=== PATIENT | male | born 1955 | race Caucasian/White ===

== ENCOUNTER 2016-07-23 18:24 | Outpatient (CLI) | payer OTHER ==
--- NOTE | 2016-07-23 19:41 | XRAY Preliminary Report ---
Exam: XR Hand 3 View RT IMPRESSION: Oblique fracture of the shaft of the fourth metacarpal, mildly displaced. RADIA The call report notification system was initiated by Dr. Jesus Duenas at 19:28 hrs on 07/23/16. The above findings were discussed with Dr. Eunice Lezama by Dr. Jesus Duenas at 19:40 hrs on 07/23/16. SITE ID: [id number]
--- NOTE | 2016-07-23 19:44 | XRAY Report ---
EXAM: RIGHT HAND RADIOGRAPHY EXAM DATE: 07/23/2016 06:35 PM. CLINICAL HISTORY: PAIN IN UNSPECIFIED FINGER(S). COMPARISON: None. TECHNIQUE: 3 views. FINDINGS: Bones: There is an oblique fracture of the mid shaft of the fourth metacarpal, mildly displaced. Joints: Osteoarthritic changes of the interphalangeal joints and wrist joints. Soft Tissues: Medial soft tissue swelling. IMPRESSION: Oblique fracture of the shaft of the fourth metacarpal, mildly displaced. RADIA The call report notification system was initiated by Dr. Jessu Duenas at 19:28 hrs on 07/23/16. The above findings were discussed with Dr. Eunice Lezama by Dr. Jesus Duenas at 19:40 hrs on 07/23/16. Referring Provider Line: [phone] SITE ID: [id number]
== END 2016-07-23 18:25 | disposition home or self-care (01) ==
LOC: DI 18:24
PROVIDERS: ATTEND Internal Medicine
DX: S62.324A Displaced fracture of shaft of fourth metacarpal bone, right hand, initial encounter for closed fracture (principal)

== ENCOUNTER 2016-07-27 06:16 | Day surgery (SDC) | payer OTHER ==
[2016-07-27] MEDS ORDERED: LACTATED RINGERS 1,000 ML IV ONE ×2 (06:48→10:06)
[2016-07-27] MEDS ORDERED: ceFAZolin 2 GM/50 ML 50 ML IV ONE (06:56)
[2016-07-27] MEDS ORDERED: BUPIVACAINE 0.5% PF 30 ML VIAL INFIL ONE ×2 (08:09)
[2016-07-27] MEDS ORDERED: KETOROLAC 30 MG/ML VIAL IVP ONE (08:25)
[2016-07-27] MEDS ORDERED: ACETAMINOPHEN 1,000 MG/100 ML VIAL IV ONE (08:25)
[2016-07-27] MEDS ORDERED: ePHEDrine 50 MG/ML VIAL IVP ONE (08:25)
[2016-07-27] MEDS ORDERED: PROPOFOL 200 MG/20 ML VIAL IVP ONE (08:25)
[2016-07-27] MEDS ORDERED: DEXAMETHASONE 4 MG/ML VIAL IVP ONE (08:25)
[2016-07-27] MEDS ORDERED: LIDOCAINE-MPF 2% 5 ML VIAL IM ONE (08:25)
[2016-07-27] MEDS ORDERED: HYDROmorphone 1 MG/ML SYRINGE IVP ONE (08:25)
[2016-07-27] MEDS ORDERED: ONDANSETRON 4 MG/2 ML VIAL IVP ONE (08:25)
[2016-07-27] MEDS ORDERED: MIDAZOLAM 2 MG/2 ML VIAL IVP ONE (08:25)
--- NOTE | 2016-07-27 10:05 | XRAY Report ---
RIGHT HAND, TWO IN-SURGERY VIEWS: 07/27/2016 CLINICAL HISTORY: Internal fixation of 4th metacarpal shaft fracture. FINDINGS: In-surgery views were obtained of the right hand, AP and lateral projections, following in ternal fixation of right 4th metacarpal shaft fracture. Anatomical position and alignment is noted a t the fracture site. Orthopedic plate and screws are seen in place maintaining this position alignme nt. IMPRESSION: IN-SURGERY VIEWS DEMONSTRATING INTERNAL FIXATION AND REDUCTION OF PREVIOUSLY NOTED RIGHT 4TH METACARPAL SHAFT FRACTURE. ANATOMICAL POSITION AND ALIGNMENT IS SEEN. JOB #: [id number] EXT JOB #:[id number]
[2016-07-27 13:41] VITALS: BP 128/84
--- NOTE | 2016-07-31 14:17 | XRAY Report ---
C-ARM SERVICES: 07/27/2016 Fluoroscopy time only, no images submitted for interpretation. Fluoroscopy time 0 minutes, 8 seconds. MTDD
--- NOTE | 2016-07-31 16:36 | OPERATIVE REPORT ---
DATE OF SURGERY: 07/27/2016 00:00:00 PREOPERATIVE DIAGNOSIS: Right ring finger metacarpal fracture. POSTOPERATIVE DIAGNOSIS: Right ring finger metacarpal fracture. PROCEDURE: Open reduction internal fixation of a right ring finger metacarpal fracture. SURGEON: Gustavo Osorio MD. ASSISTANTS: None. MATERIAL TO LAB: None. SPONGE AND NEEDLE COUNTS: Correct. ANESTHESIA: General endotracheal. FINDINGS: Same. COMPLICATIONS: None. ESTIMATED BLOOD LOSS: None. TOURNIQUET: Right arm at 250 mmHg x83 minutes. SPECIMEN REMOVED AND CULTURES: None. CONDITION AT END OF PROCEDURE: Stable. DISPOSITION: PACU, then home. INDICATIONS: This is an otherwise healthy 60-year-old male who sustained an injury to his right hand [place]. Radiographs revealed a long oblique fracture of the ring finger metacarpal on his right hand. 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 Options had been discussed with the patient in detail. Risks and complications were detailed, questio ns were answered, no guarantees were made. PROCEDURE IN DETAIL: After consent and identification, the patient was brought to the operating room in the supine position on the operating table. After induction of a general endotracheal anesthesia a nd appropriate monitoring, the patient was transferred to the operating table. The right arm was outs tretched on a hand table. The left arm was placed on an arm board. After induction of a general endot hernandez anesthesia and appropriate monitoring, we conducted a time-out. After the time-out, the right upper extremity had been prepped and draped free in the usual sterile fashion for hand surgery. With the forearm in a flexed position at the elbow, we wrapped the forearm in an Esmarch bandage to exsan guinate and inflated the tourniquet to 250 mmHg. We then pronated the forearm and mapped out a longit udinal incision line paralleling the dorsal aspect of the ring finger metacarpal. The incision extend ed from the proximal end of the metacarpal to a point approximately 1 cm proximal to the distal end o f the metacarpal. Through this incision, the skin and subcutaneous tissues were divided down to the f ascia and periosteum overlying the ring finger metacarpal. This was divided longitudinally sharply wi th a 15 blade scalpel over the bone. A periosteal elevator was then used to reflect the periosteum an d fascia of the intrinsic musculature both radially and ulnarly from the metacarpal. This allowed us to expose the long oblique fracture site. We used the dental pick, curet and rongeur to clean out fib rinous material and clot from the fracture site. There were no significant comminuted fragments of david ne noted. We selected an 8-hole T plate (LashonZedmo hand system). The plate was contoured slightly to fit ove r the dorsum of the metacarpal. We placed the plate in position and used a single standard bone reduc tion forceps to clamp the oblique fracture in an anatomic position and hold the plate in position. Wi th the plate held in this position, we used a leg technique to drill an oblique 2.0 mm screw hole acr oss the near cortex with a 1.1 mm drill hole through the far cortex. We countersunk the screw and the n inserted the lag screw to hold the oblique fracture in a reduced position. We then used a combinati on of locking 2.0 mm titanium screws and 2.0 mm cortical screws to fill remaining holes in the T plat e. The 3 proximal screws were placed in a locked configuration. Two of the distal holes were also surinder led with locking screws. Cortical screws were used in a lag configuration through the plate across 2 of the holes over the fracture site, giving us a total of 3 lags through the fracture. AP and lateral fluoroscopy revealed an anatomic reduction of the fracture. We then irrigated the woun d. The wound was then sequentially closed by approximating the periosteal and fascial layer over the plate with 2-0 Vicryl sutures. Interrupted 3-0 Vicryl subcuticular porch sutures were then applied fo llowed by Dermabond to the dermal layer. We injected the incision site with a total of 5 mL of 0.5% Marcaine without epinephrine. We then plac ed Xeroform over the incision, followed by a bulky hand dressing. This was overwrapped with an Teddy ba ndage. On completion of the procedure, the tourniquet was deflated without complication. The patient was ext ubated and transferred to the recovery room in good condition having tolerated the procedure well. JOB #: [id number] EXT JOB #:[id number]
== END 2016-07-27 06:17 | disposition home or self-care (01) ==
LOC: SDS 06:16
PROVIDERS: ATTEND Orthopaedic Surgery
PROC: 0PSP04Z Reposition Right Metacarpal with Internal Fixation Device, Open Approach (ICD-10-PCS; principal; 2016-07-27 07:30)
DX: S62.324A Displaced fracture of shaft of fourth metacarpal bone, right hand, initial encounter for closed fracture (principal)
CPT/HCPCS: 26615; 73140; 76000; J0131; J0690; J1170; J7120

== ENCOUNTER 2018-04-11 08:00 | Outpatient (CLI) | payer OTHER ==
[2018-04-11 11:23] LABS: BASOPHILS % (AUTO) 1.1 %; EOSINOPHILS # (AUTO) 0.1 10^3/uL (0.0-0.7); EOSINOPHILS % (AUTO) 2.1 %; HGB - HEMOGLOBIN 15.1 g/dL (14.0-18.0); LYMPHOCYTES # (AUTO) 1.7 10^3/uL (1.5-3.5); LYMPHOCYTES % (AUTO) 41.8 %; MEAN CORPUSCULAR HEMOGLOBIN 33.4 pg (27.0-31.0); MEAN CORPUSCULAR HGB CONC 34.7 g/dL (32.0-36.0); MEAN CORPUSCULAR VOLUME 96.1 fL (80.0-94.0); MEAN PLATELET VOLUME 7.7 fL (7.4-11.4); MONOCYTES # (AUTO) 0.5 10^3/uL (0.0-1.0); MONOCYTES % (AUTO) 11.9 %; NEUTROPHILS # (AUTO) 1.7 10^3/uL (1.5-6.6); NEUTROPHILS % (AUTO) 43.1 %; PLT - PLATELET COUNT 229 10^3/uL (130-450); RED BLOOD COUNT 4.52 10^6/uL (4.70-6.10); RED CELL DISTRIBUTION WIDTH 12.8 % (12.0-15.0)
[2018-04-11 11:36] LABS: ALBUMIN 4.3 g/dL (3.2-5.5); ALBUMIN/GLOBULIN RATIO 1.5 (1.0-2.2); ALKALINE PHOSPHATASE 53 IU/L (42-121); ALT ALANINE AMINOTRANSFERASE 40 IU/L (10-60); AST ASPARTATE AMINOTRANSFERASE 34 IU/L (10-42); BILIRUBIN,TOTAL 0.9 mg/dL (0.2-1.0); BUN - BLOOD UREA NITROGEN 18 mg/dL (6-20); CALCIUM 9.1 mg/dL (8.5-10.3); CARBON DIOXIDE - CO2 28 mmol/L (21-32); CHLORIDE 103 mmol/L (101-111); CHOL/HDL RATIO 3.7 (<5.0); CHOLESTEROL 169 mg/dL; CREATININE 0.8 mg/dL (0.6-1.2); GFR - MDRD 97 (>89); GLUCOSE 112 mg/dL (70-100); HDL CHOLESTEROL 46 mg/dL; LDL CHOLESTEROL,CALCULATED 111 mg/dL; LDL/HDL RATIO 2.4 (<3.6); SODIUM 140 mmol/L (135-145); TOTAL PROTEIN 7.2 g/dL (6.7-8.2); VLDL CHOLESTEROL 12 mg/dL
[2018-04-12 12:06] LABS: HIV AG/AB 4TH GEN NON-REACTIVE (NON-REACTIVE)
[2018-04-12 13:12] LABS: HEPATITIS C ANTIBODY NON-REACTIVE (NON-REACTIVE)
== END 2018-04-11 23:59 | disposition home or self-care (01) ==
LOC: LAB.R 08:00
PROVIDERS: ATTEND Internal Medicine
DX: Z00.00 Encounter for general adult medical examination without abnormal findings (principal); Z12.5 Encounter for screening for malignant neoplasm of prostate; Z72.89 Other problems related to lifestyle
CPT/HCPCS: 80053; 80061; 83721; 84153; 84443; 85025; 86317; 86803; 87389

== ENCOUNTER 2020-04-07 08:00 | Outpatient (CLI) | payer OTHER, MEDICARE ==
--- NOTE | 2020-04-07 10:46 | XRAY Report ---
PROCEDURE: Ankle 3 View LT INDICATIONS: ANKLE PAIN, LEFT TECHNIQUE: 3 views of the ankle were acquired. COMPARISON: None FINDINGS: Bones: No fractures or dislocations but there is moderately severe degenerative osteoarthritic kimball e with near [id number] articulation at the tibiotalar joint, and also osteophytic spurring projecti ng posteriorly from the posterior facet of the subtalar joint. No acute trauma found.. Ankle mortise is normally aligned. No suspicious bony lesions. Soft tissues: No tibiotalar joint effusion. Achilles tendon appears normal. IMPRESSION: Significant degenerative osteoarthritis at the ankle joint, and the posterior facet of t he subtalar joint, without evidence of recent trauma. There is near [id number]-[id number] articulation at the tibiotalar joint. Reviewed by: Jaswinder Coates MD on 04/07/2020 10:44 AM PST Approved by: Jaswinder Coates MD on 04/07/2020 10:44 AM PST Station ID: [id number]
--- NOTE | 2020-04-07 10:48 | XRAY Report ---
PROCEDURE: Knee 4 View BILAT INDICATIONS: DEGENERATIVE JOINT DISEASE TECHNIQUE: 3 views of the bilateral knee(s) were acquired. COMPARISON: None. FINDINGS: Bones: No fractures or dislocations but there is severe degenerative osteoarthritis bilaterally with lqqv-hn-vnoi articulation at the lateral facet of the knee joint on weightbearing view, on the right , and at the medial compartment of the left knee joint also on weightbearing view. At the patellofemo ral joint there is severe degenerative osteoarthritis that is greater on the left than the right at t he lateral facets of the patellofemoral joints, bilaterally.. No suspicious bony lesions. Soft tissues: No joint effusion. No suspicious soft tissue calcifications. IMPRESSION: Severe bilateral knee joint osteoarthritis most pronounced at the lateral compartment of the right knee, the medial compartment of the left knee, and the lateral facet of each patellofemora l joint. Reviewed by: Jaswinder Coates MD on 04/07/2020 10:47 AM PST Approved by: Jaswinder Coates MD on 04/07/2020 10:47 AM PST Station ID: [id number]
== END 2020-04-07 23:59 | disposition home or self-care (01) ==
LOC: DI.N 08:00
PROVIDERS: ATTEND Orthopaedic Surgery
DX: M19.072 Primary osteoarthritis, left ankle and foot (principal); M17.0 Bilateral primary osteoarthritis of knee

== ENCOUNTER 2020-06-10 10:19 | Outpatient (CLI) | payer MEDICARE, OTHER ==
[2020-06-10 11:39] LABS: BASOPHILS # (AUTO) 0.1 10^3/uL (0.0-0.1); BASOPHILS % (AUTO) 0.8 %; EOSINOPHILS # (AUTO) 0.2 10^3/uL (0.0-0.7); EOSINOPHILS % (AUTO) 2.5 %; HGB - HEMOGLOBIN 14.9 g/dL (14.0-18.0); LYMPHOCYTES # (AUTO) 2.5 10^3/uL (1.5-3.5); LYMPHOCYTES % (AUTO) 32.3 %; MEAN CORPUSCULAR HEMOGLOBIN 32.8 pg (27.0-31.0); MEAN CORPUSCULAR HGB CONC 33.9 g/dL (32.0-36.0); MEAN CORPUSCULAR VOLUME 96.9 fL (80.0-94.0); MEAN PLATELET VOLUME 9.3 fL (7.4-11.4); MONOCYTES # (AUTO) 0.7 10^3/uL (0.0-1.0); MONOCYTES % (AUTO) 9.5 %; NEUTROPHILS # (AUTO) 4.2 10^3/uL (1.5-6.6); NEUTROPHILS % (AUTO) 54.6 %; PLT - PLATELET COUNT 278 10^3/uL (130-450); RED BLOOD COUNT 4.54 10^6/uL (4.70-6.10); RED CELL DISTRIBUTION WIDTH 12.4 % (12.0-15.0); WHITE BLOOD COUNT 7.7 x10^3/uL (4.8-10.8)
[2020-06-10 12:30] LABS: ESTIMATED AVERAGE GLUCOSE 114 mg/dL (70-100); HEMOGLOBIN A1c% 5.6 % (4.27-6.07)
[2020-06-10 13:08] LABS: ALBUMIN 4.4 g/dL (3.2-5.5); ALBUMIN/GLOBULIN RATIO 1.6 (1.0-2.2); ALKALINE PHOSPHATASE 62 IU/L (42-121); ALT ALANINE AMINOTRANSFERASE 31 IU/L (10-60); AST ASPARTATE AMINOTRANSFERASE 28 IU/L (10-42); BUN - BLOOD UREA NITROGEN 18 mg/dL (6-20); CALCIUM 9.4 mg/dL (8.5-10.3); CARBON DIOXIDE - CO2 28 mmol/L (21-32); CHLORIDE 102 mmol/L (101-111); CHOL/HDL RATIO 3.8 (<5.0); CHOLESTEROL 205 mg/dL; CREATININE 0.8 mg/dL (0.6-1.2); GFR - MDRD 97 (>89); GLUCOSE 114 mg/dL (70-100); HDL CHOLESTEROL 54 mg/dL; LDL CHOLESTEROL,CALCULATED 137 mg/dL; LDL/HDL RATIO 2.5 (<3.6); POTASSIUM 3.9 mmol/L (3.5-5.0); SODIUM 138 mmol/L (135-145); TOTAL PROTEIN 7.2 g/dL (6.7-8.2); TRIGLYCERIDES 68 mg/dL; VLDL CHOLESTEROL 14 mg/dL
[2020-06-10 13:16] LABS: THYROID STIMULATING HORMONE 2.85 uIU/mL (0.34-5.60)
== END 2020-06-10 10:20 | disposition home or self-care (01) ==
LOC: LAB.N 10:19
PROVIDERS: ATTEND Family Medicine
DX: Z00.8 Encounter for other general examination (principal)
CPT/HCPCS: 36415; 80053; 80061; 83036; 83721; 84443; 85025

== ENCOUNTER 2020-09-07 07:28 | Day surgery (SDC) | payer MEDICARE, OTHER ==
[~2020-09-07 07:28] MED LIST: ACETAMINOPHEN 500 MG TABLET PO ONE; CELECOXIB 100 MG CAPSULE PO ONE; VANCOMYCIN 1 GM VIAL ONE; ceFAZolin 2 GM/50 ML 2 GM/50 ML BAG IV ONE
[2020-09-07] MEDS ORDERED: LACTATED RINGERS 1,000 ML IV ONE ×3 (08:04→13:27)
--- NOTE | 2020-09-07 08:15 | ANESTHESIA ---
Pre-Anesthesia VS, & Labs - Diagnosis right knee arthritis - Procedure right knee total arthroplasty Vital Signs: Temp Pulse Resp BP Pulse Ox 36.3 C L 65 18 128/90 H 98 09/07/20 07:58 09/07/20 07:58 09/07/20 07:58 09/07/20 07:58 09/07/20 07:58 Height: 5 ft 11 in Weight (kg): 93.7 kg Body Mass Index: 28.8 BMI Classification: Overweight - NPO >8 hours Home Medications and Allergies No Known Home Medications 09/28/13 Allergies/Adverse Reactions: Allergies Allergy/AdvReac Type Severity Reaction Status Date / Time No Known Drug Allergies Allergy Verified 09/28/13 14:12 Anes History & Medical History - Anesthetic History Anesthesia Complications: reports: No previous complications - Medical History Cardiovascular: reports: None Pulmonary: reports: None Gastrointestinal: reports: None Urinary: reports: None Musculoskeletal: reports: Other Endocrine/Autoimmune: reports: None Skin: reports: None - Surgical History Eyes Ears Nose Throat (EENT): reports: Tonsil/Adenoidectomy Orthopedic: reports: Arthroscopic surgery Exam General: Alert Dental: WNL Mouth Opening: Greater than 4 Fingerbreadths Mallampati classification: II Thyromental Distance: greater than 6 cm Respiratory: Lungs clear Cardiovascular: Regular rate Plan Anesthesia Type: Spinal Consent for Procedure(s) Verified and Reviewed: Yes Code Status: Attempt Resuscitation ASA classification: 2-Mild systemic disease Is this case an emergency?: No
[2020-09-07] MEDS ORDERED: oxyCODONE 5 MG TABLET PO PRN (08:19)
[2020-09-07] MEDS ORDERED: ONDANSETRON 4 MG/2 ML VIAL IVP PRN ×2 (08:19→09:33)
[2020-09-07] MEDS ORDERED: SODIUM CHLORIDE FLUSH 0.9% 10 ML SYRINGE IVP PRN (08:19)
[2020-09-07] MEDS ORDERED: DOCUSATE SODIUM 100 MG CAPSULE PO PRN (08:19)
[2020-09-07] MEDS ORDERED: MORPHINE 2 MG/ML CARPUJECT IVP PRN ×2 (08:19→09:33)
[2020-09-07] MEDS ORDERED: MIDAZOLAM 2 MG/2 ML VIAL ONE (08:23)
[2020-09-07] MEDS ORDERED: fentaNYL 100 MCG/2 ML VIAL ONE (08:24)
[2020-09-07] MEDS ORDERED: PROPOFOL 1000 MG/100 ML 1,000 MG/100 ML BOTTLE IV ONE (09:09)
[2020-09-07] MEDS ORDERED: TRANEXAMIC ACID 1,000 MG/10 ML VIAL ONE (09:09)
[2020-09-07] MEDS ORDERED: ROPIVACAINE 0.5% PF 20 ML AMPULE ONE (09:10)
[2020-09-07] MEDS ORDERED: BUPIVACAINE 0.5% PF 10 ML VIAL ONE (09:10)
[2020-09-07] MEDS ORDERED: BUPIVACAINE 0.5%-EPI 1:200000 PF 30 ML VIAL ONE (09:14)
[2020-09-07] MEDS ORDERED: SODIUM CHLORIDE 0.9% 10 ML VIAL IVP ONE ×4 (09:18→11:27)
[2020-09-07] MEDS ORDERED: BUPIVACAINE 0.5%-EPI 1:200000 PF 30 ML VIAL SUBQ ONE (09:27)
[2020-09-07] MEDS ORDERED: ePHEDrine 50 MG/ML VIAL IVP PRN (09:33)
[2020-09-07] MEDS ORDERED: fentaNYL 100 MCG/2 ML VIAL IVP PRN (09:33)
[2020-09-07] MEDS ORDERED: METOCLOPRAMIDE 10 MG/2 ML VIAL IVP PRN (09:33)
[2020-09-07] MEDS ORDERED: ATROPINE ABBOJECT 1 MG/10 ML SYRINGE IVP PRN (09:33)
[2020-09-07] MEDS ORDERED: NALOXONE 0.4 MG/ML VIAL IVP PRN (09:33)
[2020-09-07] MEDS ORDERED: LACTATED RINGERS 1,000 ML IV SCH (10:00)
[2020-09-07] MEDS ORDERED: VANCOMYCIN 1 GM VIAL MC ONE (10:03)
[2020-09-07] MEDS ORDERED: HYDROGEN PEROXIDE 3% 473 ML BOTTLE TOP ONE (11:00)
--- NOTE | 2020-09-07 11:36 | OPERATIVE REPORT ---
Operative Report - General Procedure Date: 09/07/20 Planned Procedure: right total knee arthroplasty Pre-Op Diagnosis: Osteoarthritis right knee Procedure Performed: Right total knee arthroplastyUsing Connor nephelissa saenz 2 posterior stabilized cemented components #6 femoral component, #6 tibial baseplate, 11 mm posterior stabilized tibial bearing, 29 mm biconvex patella - Procedure Note Primary Surgeon: Alf Alanis MD Secondary Surgeon: Jayant HIGGINS, Williams Kat PAC Anesthesia Provider: Kaycee Dunham Anesthesia Technique: Moderate sedation, Regional block, Spinal Estimated Blood Loss (mL): 100 Indications: 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 He has failed nonoperative treatment and has had to modify activities to a considerable degree. Both knees show advanced radiographic changes with tricompartmental disease. With regard to the right knee, where was slightly greater on the lateral than the medial side. He did have joint line tenderness and some decreased motion. He had preoperative medical evaluation prior to surgery. Findings: He had complete loss of articular cartilage to the patellofemoral joint with eburnated surfaces to the patella. He had eburnated surfaces to the lateral compartment with some bone loss because of the chronic wear. The medial compartment showed complete loss of articular cartilage but not as severe as the lateral side. The menisci were intact. His anterior cruciate ligament was absent but posterior cruciate ligament was intact.There was a nonspecific synovitis within the knee joint.There are osteophytes about the patellofemoral and tibiofemoral joint Complications: None - Other Other Information/Narrative: The patient was brought to the operating room and was placed in a supine position. She was given a adductor canal block by anesthesia. A pneumatic tourniquet was applied to the proximal right thigh over cast padding. This was a conical shaped Lashon thigh tourniquet that was sterile. An Baig knee positioner was placed on the operating room table to facilitate knee flexion of the right knee during surgery. A timeout procedure was performed by the entire operating room team and all were in agreement. A midline longitudinal incision was made with the knee in flexion. A medial parapatellar arthrotomy was made. The anterior horn of medial and lateral menisci were released and part of patellar fat pad was excised. The knee was flexed and the patella was dislocated laterally. A drill hole was made in the intramedullary notch with a 9.5 mm drill. Osteophytes about the proximal tibia and femur had been removed with a rongure. The distal femoral cutting guide was aligned parallel to the posterior condyles. The intramedullary zuleima and guide was advanced and the distal femoral guide was stabilized with half pins. The distal 5 degrees valgus cut was made through the distal femoral guide. Next the extra medullary tibial guide was assembled and applied and aligned to the mechanical axis in both sagittal and coronal planes. Tibial referencing was done to allow 2 mm of bone from the most affected side and 10 mm from the least affected side. The tibial guide was stabilized with half pins. Retractors were placed medially and laterally to protect the collateral ligaments and a retractor was placed directly against the posterior bone to sublux the tibia anteriorly. A precision [employer] saw was used to make the tibial proximal cut. The tibial block was removed as a single piece and the menisci were removed as well. The extension gap was assessed with a extension block spacer using a 10 mm spacer and this was found to fit well as well as the 10 mm spacer block with the knee in 90 degrees of flexion. Next the femoral positioning guide was applied and aligned to the epicondylar axis and Midland line. This was secured in place with approximately 3 degrees of external rotation. The size of the femur at the anterior lateral trochlea was a #6. Drill holes were made in the 5 and 1 #6 cutting block was inserted and secured. The 5 cuts were made to the captured block using precision saw. The flexion gap was assessed with the 11 mm spacer and was found to fit well. The patella was then prepared. A biconvex patellar reamer was used. The tibial trial #6 was then applied to the tibia and aligned to the mechanical axis. The punch fin was utilized. Trial reduction was performed with the femoral and tibial components in place. Notch resection was then through the trial component with reamer and box osteotome. Pulsatile lavage was performed. A tourniquet was applied during the cementing process. The components were inserted sequentially: Tibia, femur and lastly patellar component. Excess cement was removed and the knee was placed in extension during the hardening. Dilute Betadine irrigation was performed. The knee had full range of motion, good patellar tracking. There was good stability of the knee in full extension mid flexion and 90 degrees of flexion. There was good alignment of the right knee. The tourniquet had been deflated and had been in place for 18 minutes. Hemostasis was achieved with electrocautery. The deep closure was performed with #1 Ethibond proximal and distal to the patella with the knee in 40 degrees of flexion. #1 Stratofix suture was then used to close the arthrotomy incision. 2-0 stratofix was used to close the subcutaneous tissue. 3-0 Monocryl was used to do a subcuticular skin closure. Dermabond was applied to the skin incision. After the Dermabond had hardened, a silver impregnated dressing was applied. The patient tolerated the procedure well and received 2 g of Ancef intravenously and 2 g of tranexamic acid.A physician data analysis assistant was used and felt to be medically necessary to provide retraction, protection of vital structures, exposure, skin closure and dressing.
[2020-09-07] MEDS ORDERED: ACETAMINOPHEN 500 MG TABLET PO SCH (12:00)
[2020-09-07] MEDS ORDERED: HYDROmorphone 1 MG/ML CARPUJECT ONE (13:08)
[2020-09-07] MEDS ORDERED: ONDANSETRON 4 MG/2 ML VIAL ONE (13:08)
[2020-09-07] MEDS: HYDROmorphone 0.5 MG/0.5 ML SYRINGE IVP PRN ×2 (13:09→13:14)
[2020-09-07] MEDS: ceFAZolin 2 GM/50 ML 2 GM/50 ML BAG IV SCH ×2 (14:00→22:49)
--- NOTE | 2020-09-07 14:14 | XRAY Report ---
PROCEDURE: Knee 2 View RT INDICATIONS: Post op TECHNIQUE: 2 views of the right knee(s) were acquired. COMPARISON: None. FINDINGS: Bones: No fractures or dislocations. No suspicious bony lesions. Soft tissues: No joint effusion. No suspicious soft tissue calcifications. IMPRESSION: Normal alignment after right total knee arthroplasty. Reviewed by: Jaswinder Coates MD on 09/07/2020 2:13 PM PDT Approved by: Jaswinder Coates MD on 09/07/2020 2:13 PM PDT Station ID: [id number]
--- NOTE | 2020-09-07 14:47 | ANESTHESIA POST OP EVALUATION ---
Anesthesia Post Eval - Post Anesthesia Eval Vitals: Last Vital Signs Temp 36.3 C L 09/07/20 14:00 Pulse 65 09/07/20 14:00 Resp 98 H 09/07/20 14:00 BP 127/74 09/07/20 14:30 Pulse Ox 100 09/07/20 13:32 CV Function Including HR & BP: Stable Pain Control: Satisfactory Nausea & Vomiting: Negative Mental Status: Baseline Respiratory Status: Airway Patent Hydration Status: Satisfactory Anesthesia Complications: None
[2020-09-07] MEDS: SODIUM CHLORIDE FLUSH 0.9% 10 ML SYRINGE IVP SCH ×2 (15:58→16:37)
[2020-09-07] MEDS: CELECOXIB 100 MG CAPSULE PO SCH ×2 (16:17→20:51)
[2020-09-07] MEDS: ACETAMINOPHEN 500 MG TABLET PO SCH ×2 (16:36→23:46)
[2020-09-07] MEDS: NS W/20 MEQ KCL 1,000 ML IV SCH (16:37)
[2020-09-07] MEDS: traMADol 50 MG TABLET PO SCH ×2 (17:16→23:46)
[2020-09-07] MEDS: ASPIRIN EC 81 MG TABLET PO SCH (20:51)
[2020-09-07] MEDS: ethyl alcohoL 62% SWAB AMPULE NAS SCH (20:51)
[2020-09-08] MEDS: SODIUM CHLORIDE FLUSH 0.9% 10 ML SYRINGE IVP SCH ×2 (02:08→08:40)
[2020-09-08] MEDS: NS W/20 MEQ KCL 1,000 ML IV SCH (02:36)
[2020-09-08] MEDS: traMADol 50 MG TABLET PO SCH ×2 (05:16→12:12)
[2020-09-08] MEDS: ACETAMINOPHEN 500 MG TABLET PO SCH ×2 (05:16→12:13)
--- NOTE | 2020-09-08 07:37 | PROVIDER PROGRESS NOTE ---
Subjective - General Procedure Date: 09/07/20 Post Op Days: 1 - Review of Systems Wound/Incisions: positive: Dressing dry and intact Pulmonary: positive: No symptoms Cardiovascular: positive: No symptoms Gastrointestinal: positive: No symptoms Musculoskeletal: negative: Other (Pain is satisfactorily controlled to the operative right knee.) Objective - Patient Data Vital Signs: Vital Signs x48h Temp Pulse Resp BP Pulse Ox 09/08/20 04:57 36.7 C 66 18 129/78 96 09/08/20 00:58 36.6 C 89 18 102/54 L 96 Weight: Weight 09/06/20 09/07/20 09/08/20 23:59 23:59 23:59 Weight (kg) 93.7 kg Intake & Output: Intake and Output Totals x24h 09/06/20 09/07/20 09/08/20 23:59 23:59 23:59 Intake Total 600 998.333 Output Total 600 Balance 0 998.333 - Current Medications Current Medications: Current Medications Generic Name Dose Route Start Last Admin Trade Name Joseq PRN Reason Stop Dose Admin Acetaminophen 1,000 mg 09/07/20 16:00 09/08/20 05:16 Acetaminophen 500 Mg Tablet PO 1,000 mg Q6HR MANUELITO Administration Alcohol 1 amp 09/07/20 21:00 09/07/20 20:51 Ethyl Alcohol 62% Swab Ampule SUSHMA 1 amp BID MANUELITO Administration Aspirin 81 mg 09/07/20 21:00 09/07/20 20:51 Aspirin Ec 81 Mg Tablet PO 81 mg BID MANUELITO Administration Celecoxib 200 mg 09/07/20 09:00 09/07/20 20:51 Celecoxib 100 Mg Capsule PO 200 mg BID MANUELITO Administration Potassium Chloride/Sodium Chloride 1,000 mls @ 100 mls/hr 09/07/20 15:00 09/08/20 02:36 Normal Saline 0.9% W/20 Meq Kcl IV 100 mls/hr .Q10H MANUELITO Administration Sodium Chloride 10 ml 09/07/20 09:00 09/08/20 02:08 Sodium Chloride Flush 0.9% 10 Ml Syringe IVP 10 ml 0100,0900,1700 MANUELITO Administration Tramadol HCl 50 mg 09/07/20 17:00 09/08/20 05:16 Tramadol 50 Mg Tablet PO 50 mg Q6HR MANUELITO Administration - Physical Exam Wound/Incisions: positive: Dressing dry and intact General Appearance: positive: No acute distress Respiratory: negative: No respiratory distress (Right knee shows intact dressing, no drainage visible, neurovascular intact.) Skin: positive: Warm, Dry Neurologic/Psychiatric: positive: Oriented x3, Motor nml, Sensation nml Impression/Plan - Problem List Problem List: Status post knee replacement right knee: He did well on his initial physical therapy performed yesterday with ambulation and range of motion to right knee. He has 2 sessions of physical therapy today prior to discharge to home. He will need a front wheeled walker, instructions and crutch ambulation as well. He has an appointment for orthopedic follow-up in the orthopedic clinic next Saturday and he already has his postoperative pain medications for pain and instructions for 81 mg of aspirin twice daily for deep venous thrombosis prophylaxis as well. He also has physical therapy appointments arranged prior to surgery. He is alert and oriented and doing quite well, plan for discharge today pending progress with physical therapy
--- NOTE | 2020-09-08 07:42 | Discharge Plan ---
Discharge Plan Problem Reviewed?: Yes Disposition: Home, Self Care Condition: Good Diet: Regular Activity Restrictions: Wt Bearing as Tolerated Shower Restrictions: No Driving Restrictions: Yes (no driving) Assistance Devices: Walker (Front wheeled walker) Weight Bearing: As tolerated Instruction Topics: Knee Replace Total, Knee Replace Total Dc Health Concerns: None at this time Plan of Treatment: Home and outpatient physical therapy exercises Assessment: He is making good progress with ambulation, strength and range of motion right knee Additional Instructions or Follow Up instructions: None Follow-Up Care: Outpatient Rehab - PT (This has been prearranged by patient prior to surgery) No Smoking: If you smoke, Please STOP! Call for help. Follow-up with: Sunshine Hayes MD [Primary Care Provider] -
[2020-09-08] MEDS: ASPIRIN EC 81 MG TABLET PO SCH (08:39)
[2020-09-08] MEDS: ethyl alcohoL 62% SWAB AMPULE NAS SCH (08:40)
[2020-09-08] MEDS: CELECOXIB 100 MG CAPSULE PO SCH (08:40)
[2020-09-08 13:08] VITALS: BP 111/69
== END 2020-09-08 14:15 | disposition home or self-care (01) ==
LOC: SDS 07:28 → ICU 13:52 → SDS 09-08 14:15
PROVIDERS: ATTEND Orthopaedic Surgery
DX: M17.0 Bilateral primary osteoarthritis of knee (principal); M19.072 Primary osteoarthritis, left ankle and foot; M19.071 Primary osteoarthritis, right ankle and foot
CPT/HCPCS: 27447; 73560; 97110; 97161; 97165; 97530; A9270; C1713; J0690; J1170; J7120

== ENCOUNTER 2020-09-16 14:24 | Outpatient (CLI) | payer MEDICARE, OTHER ==
[2020-09-16 17:39] LABS: HCT - HEMATOCRIT 37.2 % (42.0-52.0); HGB - HEMOGLOBIN 12.4 g/dL (14.0-18.0); MEAN CORPUSCULAR HGB CONC 33.3 g/dL (32.0-36.0); MEAN CORPUSCULAR VOLUME 98.9 fL (80.0-94.0); MEAN PLATELET VOLUME 8.7 fL (7.4-11.4); RED BLOOD COUNT 3.76 10^6/uL (4.70-6.10); RED CELL DISTRIBUTION WIDTH 12.5 % (12.0-15.0); WHITE BLOOD COUNT 9.2 x10^3/uL (4.8-10.8)
== END 2020-09-16 14:25 | disposition home or self-care (01) ==
LOC: LAB.N 14:24
PROVIDERS: ATTEND Orthopaedic Surgery
DX: Z01.812 Encounter for preprocedural laboratory examination (principal)
CPT/HCPCS: 36415; 85027

== ENCOUNTER 2020-09-21 06:28 | Day surgery (SDC) | payer MEDICARE, OTHER ==
[~2020-09-21 06:28] MED LIST changes: +DEXAMETHASONE 10 MG/ML VIAL ONE; -VANCOMYCIN 1 GM VIAL ONE
[2020-09-21] MEDS ORDERED: LACTATED RINGERS 1,000 ML IV ONE ×2 (06:37→12:49)
[2020-09-21] MEDS ORDERED: VANCOMYCIN 1 GM VIAL ONE (07:00)
--- NOTE | 2020-09-21 07:52 | ANESTHESIA ---
Pre-Anesthesia VS, & Labs - Diagnosis L knee OA - Procedure L TKA Vital Signs: Temp Pulse Resp BP Pulse Ox 36.3 C L 78 16 133/75 H 100 09/21/20 06:42 09/21/20 06:42 09/21/20 06:42 09/21/20 06:42 09/21/20 06:42 Height: 5 ft 11 in Weight (kg): 92 kg Body Mass Index: 28.3 BMI Classification: Overweight - NPO >8 hours - Lab Results Current Lab Results: Laboratory Tests 09/21/20 06:54: POC Whole Bld Glucose 94 Lab results reviewed: Yes Home Medications and Allergies Acetaminophen [Acetaminophen Extra Strength] 500 mg PO QID 09/19/20 Ibuprofen [Motrin] 400 mg PO QID 09/19/20 Allergies/Adverse Reactions: Allergies Allergy/AdvReac Type Severity Reaction Status Date / Time No Known Drug Allergies Allergy Verified 09/28/13 14:12 Anes History & Medical History - Anesthetic History Anesthesia Complications: reports: No previous complications Family history of Anesthesia Complications: Denies Family history of Malignant Hyperthermia: Denies - Medical History Cardiovascular: reports: None Pulmonary: reports: None Gastrointestinal: reports: None Urinary: reports: None Musculoskeletal: reports: Osteoarthritis Endocrine/Autoimmune: reports: None Skin: reports: None - Surgical History Eyes Ears Nose Throat (EENT): reports: Tonsil/Adenoidectomy Orthopedic: reports: Knee replacement, Arthroscopic surgery Exam General: Alert, Oriented x3, Cooperative Dental: WNL Mouth Openin Fingerbreadth Neck Mobility: Normal Mallampati classification: II Thyromental Distance: 4-6 cm Respiratory: Lungs clear, Normal breath sounds, No respiratory distress Cardiovascular: Regular rate Mental/Cognitive Status: Alert/Oriented X3, Normal for patient Cognitive Status: Within normal limits Plan Anesthesia Type: Spinal, Adductor Block Regional Block: Per Surgeon's request for Post Op pain control Consent for Procedure(s) Verified and Reviewed: Yes Code Status: Attempt Resuscitation ASA classification: 2-Mild systemic disease Is this case an emergency?: No
[2020-09-21] MEDS ORDERED: DOCUSATE SODIUM 100 MG CAPSULE PO PRN (08:40)
[2020-09-21] MEDS ORDERED: diphenhydrAMINE 25 MG CAPSULE PO PRN (08:40)
[2020-09-21] MEDS ORDERED: MIDAZOLAM 2 MG/2 ML VIAL ONE (08:56)
[2020-09-21] MEDS ORDERED: PROPOFOL 1000 MG/100 ML 1,000 MG/100 ML BOTTLE IV ONE (08:58)
[2020-09-21] MEDS ORDERED: BUPIVACAINE 0.5% PF 10 ML VIAL ONE (09:01)
[2020-09-21] MEDS ORDERED: fentaNYL 100 MCG/2 ML VIAL ONE (09:04)
[2020-09-21] MEDS ORDERED: PHENYLEPHRINE 10 MG/ML VIAL ONE (09:48)
[2020-09-21] MEDS ORDERED: TRANEXAMIC ACID 1,000 MG/10 ML VIAL ONE ×2 (09:51→12:10)
[2020-09-21] MEDS ORDERED: HYDROmorphone 0.5 MG/0.5 ML SYRINGE IVP PRN (09:54)
[2020-09-21] MEDS ORDERED: ONDANSETRON 4 MG/2 ML VIAL IVP PRN ×2 (09:54→17:21)
[2020-09-21] MEDS ORDERED: NALOXONE 0.4 MG/ML VIAL IVP PRN (09:54)
[2020-09-21] MEDS ORDERED: ATROPINE ABBOJECT 1 MG/10 ML SYRINGE IVP PRN (09:54)
[2020-09-21] MEDS ORDERED: METOCLOPRAMIDE 10 MG/2 ML VIAL IVP PRN (09:54)
[2020-09-21] MEDS ORDERED: BUPIVACAINE 0.25% PF 30 ML VIAL ONE (09:54)
[2020-09-21] MEDS ORDERED: MORPHINE 2 MG/ML CARPUJECT IVP PRN (09:54)
[2020-09-21] MEDS ORDERED: ePHEDrine 50 MG/ML VIAL IVP PRN (09:54)
[2020-09-21] MEDS ORDERED: fentaNYL 100 MCG/2 ML VIAL IVP PRN (09:54)
[2020-09-21] MEDS ORDERED: LACTATED RINGERS 1,000 ML IV SCH (10:00)
[2020-09-21] MEDS ORDERED: BUPIVACAINE 0.25% PF 30 ML VIAL SUBQ ONE ×3 (10:24)
[2020-09-21] MEDS ORDERED: ROPIVACAINE 0.5% PF 20 ML AMPULE ONE (11:16)
[2020-09-21] MEDS ORDERED: PROPOFOL 200 MG/20 ML VIAL IVP ONE ×2 (11:17→12:24)
--- NOTE | 2020-09-21 12:21 | OPERATIVE REPORT ---
Operative Report - General Procedure Date: 09/21/20 Planned Procedure: Left total knee replacement Pre-Op Diagnosis: Varus osteoarthritis left knee Procedure Performed: Left total knee replacement: [employer] journey 2 posterior stabilized total knee with #6 Oxinium femoral component, #6 tibial baseplate, 29 mm biconvex patella, 13 mm articular tibial bearing, all components cemented Post Op Diagnosis: Same as preoperative diagnosis - Procedure Note Primary Surgeon: Alf Alanis MD Secondary Surgeon: Jayant HIGGINS Anesthesia Provider: Brad Alfaro CRNA Anesthesia Technique: Regional block, Spinal Estimated Blood Loss (mL): 150 Indications: This is a 64-year-old 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 He has had progressively worsened symptoms to both knees over several years to the point where he had to eliminate many activities that he used to enjoy doing. Has had previous arthroscopy to the left knee. He has pain, instability, stiffness and limited ability to kneel and do activities. He had a varus def ormity left knee, partially fixed at about 4 to 5 degrees with a 10 degree flexion contracture left knee his stability was good. His x-rays show advanced wear tricompartmental but greatest to the medial compartment. These x-rays were consistent with advanced varus osteoarthritis left knee with some tibial subluxation as well Findings: He had advanced eburnated bone all 3 compartments he had osteophytes about the tibiofemoral joint. There was a nonspecific synovitis. The bone loss was greatest to the medial compartment but he had bone loss to all 3 compartments. His stability was good. Complications: None - Other Other Information/Narrative: The patient was brought to the operating room and was placed in a supine position. He was given a adductor canal block by anesthesia. A pneumatic tourniquet was applied to the proximal left thigh over cast padding. This was a conical shaped Lashon thigh tourniquet that was sterile. An adjustable Baig leg lawton was placed on the operating room table to facilitate knee flexion of the left knee during surgery. A timeout procedure was performed by the entire operating room team and all were in agreement. A midline longitudinal incision was made with the knee in flexion. A medial parapatellar arthrotomy was made. The anterior horn of medial and lateral menisci were released and part of patellar fat pad was excised. The knee was flexed and the patella was dislocated laterally. A drill hole was made in the intramedullary notch with a 9.5 mm drill. Osteophytes about the proximal tibia and femur had been removed with a rongeur. The distal femoral cutting guide was aligned parallel to the posterior condyles. The intramedullary zuleima and guide was advanced and the distal femoral guide was stabilized with half pins. The distal 5 degrees valgus cut was made through the distal femoral guide, plus 2 mm. Next the extra medullary tibial guide was assembled and applied and aligned to the mechanical axis in both sagittal and coronal planes. Tibial referencing was done to allow 3 mm of bone from the most affected side . The tibial guide was stabilized with half pins. Retractors were placed medially and laterally to protect the collateral ligaments and a retractor was placed directly against the posterior bone to sublux the tibia anteriorly. A Nexmo precision 8 saw was used to make the tibial proximal cut. The tibial block was removed as a single piece and the menisci were removed as well. The extension gap was assessed with a extension block spacer using a 10 mm spacer and this was found to fit well as well as the 9 mm spacer block with the knee in 90 degrees of flexion. Next the femoral positioning guide was applied and aligned to the epicondylar axis and Hanson line. This was secured in place with approximately 4 degrees of external rotation. The size of the femur at the anterior lateral trochlea was a #6. Drill holes were made in the 5 and 1 #6 cutting block was inserted and secured, 1mm anterior shift. The 5 cuts were made to the captured block using oscillating saw. The notch was removed with reamer and box osteotome. The flexion gap was assessed with the 13mm spacer and was found to fit well. The patella was then prepared. A 29 mm biconvex patellar reamer was used.Since his patella was only 15 mm thick I did not do as much of a patellar recession to allow the thickness of the patella to be restored to 21 mm with the biconvex patella. The tibial trial #6 was then applied to the tibia and aligned to the mechanical axis. The drill and punch fin was utilized. Trial reduction was performed with the femoral and tibial components in place. . Pulsatile lavage was performed. A tourniquet was applied during the cementing process. The components were inserted sequentially: Tibia, femur and lastly patellar component. Drill holes were made in medial lateral femoral condyles to the trial. Excess cement was removed and the knee was placed in extension during the hardening. Dilute Betadine irrigation was performed. The knee had full range of motion, good patellar tracking. There was good stability of the knee in full extension mid flexion and 90 degrees of flexion. There was good alignment of the left knee. The tourniquet had been deflated and had been in place for 20 minutes. Hemostasis was achieved with electrocautery. The deep closure was performed with #1 Ethibond proximal and distal to the patella with the knee in 40 degrees of flexion. #1 stratofix suture was then used to close the arthrotomy incision. 2-0 Stratofix was used to close the subcutaneous tissue. 3-0 Monocryl was used to do a subcuticular skin closure. Dermabond was applied to the skin incision. After the Dermabond had hardened, a silver impregnated dressing was applied. He tolerated the procedure well and received 2 g of Ancef intravenously and 2 g of tranexamic acid. A neurosurgical nurse was utilized during the procedure and was found to be necessary component to help with exposure, protection of vital structures and closure.
[2020-09-21] MEDS: HYDROmorphone 1 MG/ML CARPUJECT IVP PRN ×3 (13:31→20:51)
[2020-09-21] MEDS ORDERED: SODIUM CHLORIDE 0.9% 500 ML IV ONE (13:42)
[2020-09-21] MEDS: ACETAMINOPHEN 500 MG TABLET PO SCH ×2 (13:43→18:30)
[2020-09-21] MEDS: traMADol 50 MG TABLET PO PRN ×2 (13:43→22:26)
[2020-09-21] MEDS: CELECOXIB 100 MG CAPSULE PO SCH ×2 (13:44→20:51)
[2020-09-21] MEDS: ASPIRIN EC 81 MG TABLET PO SCH ×2 (13:44→20:51)
[2020-09-21] MEDS: SODIUM CHLORIDE FLUSH 0.9% 10 ML SYRINGE IVP SCH ×2 (13:45→17:48)
[2020-09-21] MEDS: ceFAZolin 2 GM/50 ML 2 GM/50 ML BAG IV SCH ×2 (13:45→22:26)
[2020-09-21] MEDS: ethyl alcohoL 62% SWAB AMPULE NAS SCH ×2 (13:51→20:52)
--- NOTE | 2020-09-21 14:41 | XRAY Report ---
PROCEDURE: Knee 2 View LT INDICATIONS: POSTOP KNEE TECHNIQUE: 2 views of the left knee(s) were acquired. COMPARISON: None. FINDINGS: Bones: There is status post left total knee arthroplasty. No fractures or dislocations. No suspicio us bony lesions. Soft tissues: Expected postsurgical changes are seen in left knee soft tissue. No suspicious soft tis moo calcifications. IMPRESSION: Postoperative changes from left total knee arthroplasty with anatomic left knee alignmen t. Reviewed by: Contreras Quinteros MD on 09/21/2020 2:40 PM PDT Approved by: Contreras Quinteros MD on 09/21/2020 2:40 PM PDT Station ID: [id number]
[2020-09-21] MEDS: ONDANSETRON 4 MG/2 ML VIAL IVP PRN ×2 (14:58→20:51)
--- NOTE | 2020-09-21 15:23 | ANESTHESIA POST OP EVALUATION ---
Anesthesia Post Eval - Post Anesthesia Eval Vitals: Last Vital Signs Temp 36.3 C L 09/21/20 13:55 Pulse 63 09/21/20 13:55 Resp 12 09/21/20 13:55 BP 117/71 09/21/20 13:55 Pulse Ox 98 09/21/20 13:55 CV Function Including HR & BP: Stable Pain Control: Satisfactory Nausea & Vomiting: Negative Mental Status: Baseline Respiratory Status: Airway Patent Hydration Status: Satisfactory Anesthesia Complications: None
[2020-09-21] MEDS: KETOROLAC 15 MG/ML VIAL IVP PRN (17:48)
[2020-09-21] MEDS: traMADol 50 MG TABLET PO SCH (20:52)
[2020-09-22] MEDS: ACETAMINOPHEN 500 MG TABLET PO SCH ×3 (00:36→11:26)
[2020-09-22] MEDS: SODIUM CHLORIDE FLUSH 0.9% 10 ML SYRINGE IVP SCH ×2 (00:37→07:46)
[2020-09-22] MEDS: traMADol 50 MG TABLET PO SCH ×4 (02:07→13:50)
[2020-09-22] MEDS: ONDANSETRON 4 MG/2 ML VIAL IVP PRN ×2 (03:26→09:37)
[2020-09-22] MEDS: SODIUM CHLORIDE FLUSH 0.9% 10 ML SYRINGE IVP PRN ×3 (03:27→09:38)
[2020-09-22] MEDS: HYDROmorphone 1 MG/ML CARPUJECT IVP PRN ×2 (03:27→11:26)
[2020-09-22] MEDS: CELECOXIB 100 MG CAPSULE PO SCH (07:46)
[2020-09-22] MEDS: ethyl alcohoL 62% SWAB AMPULE NAS SCH (07:46)
[2020-09-22] MEDS: KETOROLAC 15 MG/ML VIAL IVP PRN (07:46)
[2020-09-22] MEDS: ASPIRIN EC 81 MG TABLET PO SCH (07:47)
--- NOTE | 2020-09-22 07:48 | PROVIDER PROGRESS NOTE ---
Subjective - General Procedure Date: 09/21/20 Post Op Days: 1 Procedure Performed: Left TKA - Review of Systems Wound/Incisions: positive: Dressing dry and intact General: negative: Fever, Chills Musculoskeletal: positive: Joint pain - Other Other Information/Narrative: Patient is a 64-year-old male with a history of a right total knee arthroplasty on 09/07/2020 approximately 2 weeks ago is postop day 1 left total knee arthroplasty. Patient has a history including cervical neck DJD. Patient is postop day 1 shows no signs or symptoms of infection, patient had some pain control issues the first 6 hours after surgery his pain is now well controlled. Because of the pain the patient was unable to do any physical therapy on postop day 0 and is scheduled for 3 rounds of physical therapy postop day 1. Objective - Patient Data Reviewed Vital Signs: Yes Vital Signs: Vital Signs x48h Temp Pulse Pulse Resp BP Pulse Ox 09/22/20 05:00 36.4 C L 73 18 108/57 L 92 09/22/20 00:00 36.6 C 75 18 115/72 97 Weight: Weight 09/20/20 09/21/20 09/22/20 23:59 23:59 23:59 Weight (kg) 92 kg Intake & Output: Intake and Output Totals x24h 09/20/20 09/21/20 09/22/20 23:59 23:59 23:59 Intake Total 150 Output Total 350 400 Balance -200 -400 - Imaging Results Radiology Imaging: positive: EMP read indepedently (And independently visualized the radiographs taken on 09/22/2019 one of the left knee show status post left knee total arthroplasty with good anatomical alignment no apparent hardware loosening) - Current Medications Current Medications: Current Medications Generic Name Dose Route Start Last Admin Trade Name Freq PRN Reason Stop Dose Admin Acetaminophen 1,000 mg 09/21/20 12:00 09/22/20 06:18 Acetaminophen 500 Mg Tablet PO 1,000 mg Q6HR MANUELITO Administration Alcohol 1 amp 09/21/20 09:00 09/21/20 20:52 Ethyl Alcohol 62% Swab Ampule SUSHMA 1 amp BID MANUELITO Administration Aspirin 81 mg 09/21/20 14:00 09/21/20 20:51 Aspirin Ec 81 Mg Tablet PO 81 mg BID MANUELITO Administration Celecoxib 200 mg 09/21/20 09:00 09/21/20 20:51 Celecoxib 100 Mg Capsule PO 200 mg BID MANUELITO Administration Hydromorphone HCl 1 mg 09/21/20 16:15 09/22/20 03:27 Hydromorphone 1 Mg/Ml Carpuject IVP 1 mg Q2HR PRN Administration PAIN Ketorolac Tromethamine 15 mg 09/21/20 17:20 09/21/20 17:48 Ketorolac 15 Mg/Ml Vial IVP 09/26/20 17:19 15 mg Q6HR PRN Administration PAIN Ondansetron HCl 4 mg 09/21/20 08:40 09/22/20 03:26 Ondansetron 4 Mg/2 Ml Vial IVP 4 mg Q6HR PRN Administration Nausea / Vomiting Sodium Chloride 10 ml 09/21/20 08:40 09/22/20 03:35 Sodium Chloride Flush 0.9% 10 Ml Syringe IVP 10 ml PRN PRN Administration NEEDED PER PROVIDER ORDERS Sodium Chloride 10 ml 09/21/20 09:00 09/22/20 00:37 Sodium Chloride Flush 0.9% 10 Ml Syringe IVP 10 ml 0100,0900,1700 MANUELITO Administration Tramadol HCl 50 mg 09/21/20 08:40 09/21/20 22:26 Tramadol 50 Mg Tablet PO 50 mg Q4HR PRN Administration PAIN Tramadol HCl 50 mg 09/21/20 21:00 09/22/20 06:19 Tramadol 50 Mg Tablet PO 50 mg Q4HR MANUELITO Administration - Physical Exam Wound/Incisions: positive: Dressing dry and intact General Appearance: positive: No acute distress Respiratory: positive: No respiratory distress Skin: positive: Color nml, Warm, Dry Extremities: positive: Joint swelling (Dressing dry and intact with no evidence of excessive drainage) Neurologic/Psychiatric: positive: Oriented x3 ABX Reporting Has patient been on IV antibiotics over the past 48 hours?: Yes Impression/Plan - Problem List Problem List: Patient is a 64-year-old male for history of cervical and joint DJD underwent a right TKA on 09/07/2020 is postop day 1 the left TKA performed a Dr Alf Alanis at [facility] on 09/21/2020. Patient had some initial pain control issues which are now resolved patient is comfortable. Patient shows no signs or symptoms of infection gross motor and sensory intact in left lower extremity. Patient scheduled to do 3 rounds of physical therapy today and successful completion of getting up to chair and getting up to toilet shall clear him for safe discharge home, Providing adequate ongoing pain control.
--- NOTE | 2020-09-22 07:55 | Discharge Plan ---
Discharge Plan Problem Reviewed?: Yes Disposition: Home, Self Care Diet: Regular Activity Restrictions: Activity as Tolerated Shower Restrictions: Yes (Sponge bath until first postop appointment) Driving Restrictions: Yes (Do not operate a motor vehicle until cleared by surgeon) Assistance Devices: Walker Weight Bearing: Partial Weight (As tolerated) Plan of Treatment: Elevate limb, ice, physical therapy Additional Instructions or Follow Up instructions: Patient is to take scheduled [id number] anti-inflammatory like Aleve and Tylenol [id number] regardless of pain. Use narcotic pain medication as needed for breakthrough pain. Take an 81 mg baby aspirin 1 in a.m. 1 in the PM every day for 6 weeks for blood clot prevention. No Smoking: If you smoke, Please STOP! Call for help. Follow-up with: Roger Waller MD [Primary Care Provider] -
[2020-09-22 09:45] VITALS: BP 114/70
== END 2020-09-22 13:45 | disposition home or self-care (01) ==
LOC: SDS 06:28 → MS3 13:30 → SDS 09-22 13:45
PROVIDERS: ATTEND Orthopaedic Surgery
DX: M17.12 Unilateral primary osteoarthritis, left knee (principal); M21.162 Varus deformity, not elsewhere classified, left knee; G89.18 Other acute postprocedural pain
CPT/HCPCS: 27447; 73560; 97116; 97161; 97530; A9270; C1713; J0690; J1170; J7120

== ENCOUNTER 2020-12-19 08:00 | Outpatient (CLI) | payer MEDICARE, OTHER ==
--- NOTE | 2020-12-19 16:08 | XRAY Report ---
PROCEDURE: Knee 4 View BILAT INDICATIONS: BILATERAL KNEE REPLACEMENTS TECHNIQUE: 3 views of the right and left knee(s) were acquired. COMPARISON: None. FINDINGS: Bones: No fractures or dislocations. No suspicious bony lesions. Bilateral knee arthroplasties note d. Orthopedic hardware is in expected position. No lucencies identified at the bone hardware interfac e. Soft tissues: No joint effusion. No suspicious soft tissue calcifications. IMPRESSION: Expected postsurgical change for bilateral knee arthroplasties. Reviewed by: Robyn Quiroz MD, PhD on 12/19/2020 4:06 PM PDT Approved by: Robyn Quiroz MD, PhD on 12/19/2020 4:06 PM PDT Station ID: [id number]
== END 2020-12-19 23:59 | disposition home or self-care (01) ==
LOC: DI.N 08:00
PROVIDERS: ATTEND Orthopaedic Surgery
DX: Z96.653 Presence of artificial knee joint, bilateral (principal)

== ENCOUNTER 2023-10-21 16:01 | Outpatient (CLI) | payer MEDICARE, OTHER ==
[2023-10-21 21:41] LABS: BASOPHILS # (AUTO) 0.1 10^3/uL (0.0-0.1); BASOPHILS % (AUTO) 0.7 %; EOSINOPHILS # (AUTO) 0.1 10^3/uL (0.0-0.7); EOSINOPHILS % (AUTO) 1.6 %; HCT - HEMATOCRIT 43.9 % (42.0-52.0); HGB - HEMOGLOBIN 15.1 g/dL (14.0-18.0); LYMPHOCYTES # (AUTO) 2.4 10^3/uL (1.5-3.5); LYMPHOCYTES % (AUTO) 34.5 %; MEAN CORPUSCULAR HEMOGLOBIN 33.6 pg (27.0-31.0); MEAN CORPUSCULAR HGB CONC 34.4 g/dL (32.0-36.0); MEAN CORPUSCULAR VOLUME 97.8 fL (80.0-94.0); MEAN PLATELET VOLUME 9.6 fL (7.4-11.4); MONOCYTES # (AUTO) 0.8 10^3/uL (0.0-1.0); MONOCYTES % (AUTO) 11.5 %; NEUTROPHILS # (AUTO) 3.6 10^3/uL (1.5-6.6); NEUTROPHILS % (AUTO) 51.6 %; PLT - PLATELET COUNT 263 10^3/uL (130-450); RED BLOOD COUNT 4.49 10^6/uL (4.70-6.10); RED CELL DISTRIBUTION WIDTH 12.4 % (12.0-15.0)
[2023-10-21 22:07] LABS: THYROID STIMULATING HORMONE 2.98 uIU/mL (0.34-5.60)
[2023-10-21 22:15] LABS: ALBUMIN 4.3 g/dL (3.2-5.5); ALBUMIN/GLOBULIN RATIO 1.6 (1.0-2.2); ALKALINE PHOSPHATASE 72 IU/L (42-121); ALT ALANINE AMINOTRANSFERASE 41 IU/L (10-60); AST ASPARTATE AMINOTRANSFERASE 50 IU/L (10-42); BUN - BLOOD UREA NITROGEN 17 mg/dL (6-20); CALCIUM 9.4 mg/dL (8.5-10.3); CARBON DIOXIDE - CO2 27 mmol/L (21-32); CHLORIDE 103 mmol/L (101-111); CHOL/HDL RATIO 3.8 (<5.0); CHOLESTEROL 195 mg/dL; CREATININE 0.9 mg/dL (0.6-1.3); GFR - MDRD 84 (>89); GLUCOSE 98 mg/dL (74-104); HDL CHOLESTEROL 51 mg/dL; LDL CHOLESTEROL,CALCULATED 127 mg/dL; LDL/HDL RATIO 2.5 (<3.6); POTASSIUM 4.2 mmol/L (3.5-4.5); SODIUM 136 mmol/L (135-145); TRIGLYCERIDES 87 mg/dL; VLDL CHOLESTEROL 17 mg/dL
== END 2023-10-21 16:02 | disposition home or self-care (01) ==
LOC: LAB.N 16:01
PROVIDERS: ATTEND Registered Nurse
DX: R53.83 Other fatigue (principal); Z13.228 Encounter for screening for other metabolic disorders; Z13.220 Encounter for screening for lipoid disorders; Z13.29 Encounter for screening for other suspected endocrine disorder; Z13.0 Encounter for screening for diseases of the blood and blood-forming organs and certain disorders involving the immune mechanism; Z12.5 Encounter for screening for malignant neoplasm of prostate; M70.22 Olecranon bursitis, left elbow
CPT/HCPCS: 36415; 80053; 80061; 84403; 84443; 85025; 87070; 87205; G0103; 83721; 84153

== ENCOUNTER 2023-10-31 07:32 | Outpatient (CLI) | payer MEDICARE, OTHER ==
--- NOTE | 2023-10-31 08:51 | XRAY Report ---
PROCEDURE: Elbow 3+V LT INDICATIONS: OLECRANON BURSITIS LT TECHNIQUE: 3 views of the elbow were acquired. COMPARISON: None. FINDINGS: Bones: No fractures or dislocations. Degenerative arthritis with medial and lateral osteophytes and joint space narrowing. No suspicious bony lesions. Soft tissues: No effusion. No suspicious soft tissue calcifications or masses. IMPRESSION: 1. Degenerative arthritis. 2. No acute bony abnormality. Reviewed by: Gustavo Lott MD on 10/31/2023 8:50 AM PDT Approved by: Gustavo Lott MD on 10/31/2023 8:50 AM PDT Station ID: [id number]
== END 2023-10-31 07:33 | disposition home or self-care (01) ==
LOC: DI 07:32
PROVIDERS: ATTEND Orthopaedic Surgery
DX: M70.22 Olecranon bursitis, left elbow (principal); M19.022 Primary osteoarthritis, left elbow